=== PATIENT | male | born 1970 | race Caucasian/White ===

== ENCOUNTER 2022-09-13 15:40 | Inpatient (IN) | payer OTHER, SELFPAY ==
--- NOTE | ~2022-09-13 | CT_ITS ---
EXAMINATION: CT ABDOMEN AND PELVIS WITHOUT CONTRAST CLINICAL INFORMATION: Abdominal pain and leukocytosis COMPARISON: None available. TECHNIQUE: Multidetector volumetric imaging was performed from the superior aspect of the liver through the pubic symphysis. Sagittal and coronal reformatted images were obtained on the technologist's workstation. This CT examination was performed using dose optimization techniques as appropriate, variously including the following: *Automated exposure control *Adjustment of mA and/or kV according to patient size (this includes techniques or standardized protocols for targeted exams where dose is matched to indication/reason for exam; i.e. extremities or head) *Use of iterative reconstruction technique DLP: 540 mGy-cm FINDINGS: LUNG BASES: The visualized lung bases are unremarkable. LIVER, GALLBLADDER, AND BILIARY TREE: The liver is normal in size, shape, and attenuation. No focal hepatic lesion or biliary ductal dilatation is present. The gallbladder is unremarkable with no evidence of radiopaque gallstones, gallbladder wall thickening, or obvious pericholecystic inflammatory changes. PANCREAS: Unremarkable. SPLEEN: Small calcification in the spleen. ADRENAL GLANDS: Unremarkable. KIDNEYS AND URETERS: The kidneys are normal in size, shape, and attenuation. No hydronephrosis, hydroureter, or calculi seen. 4 cm cyst in the lower pole of the left kidney. No imaging follow-up recommended. No perinephric stranding. BLADDER: Unremarkable. GASTROINTESTINAL TRACT: There is diverticulosis of the colon. There is focal wall thickening of the proximal sigmoid colon and stranding of the surrounding fat suggestive of diverticulitis. There is ill-defined increased soft tissue seen lateral to the sigmoid colon questionable for developing abscess. This measures 2 x 3.5 cm in transverse and AP dimension and 3 cm in longitudinal dimension. No evidence of obstruction or perforation. The small and large bowel are otherwise unremarkable. The appendix is unremarkable. ABDOMINAL WALL: No significant hernia is appreciated. LYMPH NODES: No enlarged lymph nodes. Small retroperitoneal lymph nodes. VASCULAR: Unremarkable. PELVIC VISCERA: Unremarkable. OSSEOUS STRUCTURES: Degenerative changes of the spine. CT/CT abdomen pelvis wo IV con IMPRESSION: Sigmoid diverticulitis. Question small developing abscess lateral to the sigmoid colon. Fleischner guidelines were followed.
[2022-09-13 17:18] VITALS: BP 159/91; PULSE 84; RESP 16; TEMP 37; O2SAT 98; BMI 27.4
[2022-09-13 17:38] LABS: MANUAL DIFF FLAG NO
[2022-09-13 17:39] LABS: Basophils Absolute Auto 0.1 X10*3/uL (0.0-0.2); Basophils Percent Auto 0.8 % (0-2); Eosinophils Absolute Auto 0.3 X10*3/uL (0.0-0.4); Hematocrit 47.6 % (42.0-52.0); Hemoglobin 15.5 g/dl (14.0-18.0); Imm Gran Abs Auto 0.11 X10*3/uL (0.00-0.03); Imm Gran Pct Auto 0.8 % (0.0-0.4); Lymphocytes Absolute Auto 2.2 X10*3/uL (1.2-4.9); Lymphocytes Percent Auto 15.2 % (20-40); Mean Corpuscular HGB Conc 32.6 g/dl (31.0-36.0); Mean Corpuscular Hemoglobin 28.8 pg (27.0-33.0); Mean Corpuscular Volume 88.3 fL (80.0-98.0); Mean Platelet Volume 9.9 fL (9.4-12.4); Monocytes Absolute Auto 1.3 X10*3/uL (0.1-1.2); Neutrophils Absolute Auto 10.5 x10*3/uL (2.0-8.3); Neutrophils Percent Auto 72.2 % (45-73); Platelet Count 441 X10*3/uL (160-400); Red Blood Count 5.39 X10*6/uL (4.60-5.80); Red Cell Distribution Width 14.2 % (11.0-16.0); White Blood Count 14.5 X10*3/uL (4.8-10.8)
[2022-09-13 17:59] LABS: Alanine Aminotransferase 14 U/L (0-40); Albumin Level 4.1 g/dL (3.5-5.0); Alkaline Phosphatase 73 U/L (39-117); Anion Gap 12 (12-20); Aspartate Amino Transferase 15 U/L (5-37); Bilirubin Total 0.6 mg/dL (0.0-1.0); Blood Urea Nitrogen 16 mg/dL (9-16); Calcium 9.2 mg/dL (8.4-10.2); Carbon Dioxide 30 mmol/L (22-29); Chloride 103 mmol/L (96-108); Creatinine Clr Calc Pharmacy 97.1; Estimated Glomerular Filt Rate > 60; Glucose Random 94 mg/dL (60-115); Lipase 10 U/L (8-78); Potassium 3.9 mmol/L (3.3-5.1); Sodium 141 mmol/L (135-145); Total Protein 7.1 g/dL (6.5-8.0)
--- NOTE | 2022-09-13 21:29 | ED_ITS ---
HPI - Abdominal Pain General Chief Complaint: Abdominal Pain Stated Complaint: abd pain Time Seen by Provider: 09/13/22 21:19 Source: patient Mode of arrival: ambulatory Limitations: no limitations History of Present Illness HPI narrative: 51-year-old male complain of lower pain mostly suprapubic area for the past 6 days. Pain is confined to the suprapubic area with no radiation described as severe 10/10, patient lives with chronic constipation had a normal movement after taking laxative 2 days ago with no relief of his pain, patient is passing gas, declined any intra-abdominal abdominal surgery in the past. No clear aggravating factors or relieving factors, no nausea, no vomiting, no diarrhea, no fever, no chills, no dysuria, no frequency urination, no blood in the urine. Related Data Allergies Allergy/AdvReac Type Severity Reaction Status Date / Time No Known Allergies Allergy Verified 09/13/22 17:25 Review of Systems Review of Systems All other systems are reviewed and are negative Constitutional: Reports as per HPI and Reports no additional constitutional complaints Eyes: Reports as per HPI and Reports no additional eye complaints Reports system reviewed and no additional complaints, except as documented Cardiovascular: Reports as per HPI and Reports no additional cardiovascular complaints Respiratory: Reports as per HPI and Reports no additional respiratory complaints Gastrointestinal: Reports as per HPI and Reports no additional gastrointestinal complaints Genitourinary: Reports no additional female genitourinary complaints Musculoskeletal: Reports no additional musculoskeletal complaints Skin/Breast: Reports system reviewed and no additional complaints, except as docu Psychiatric: Reports no additional psychiatric complaints Endocrine: Reports no additional endocrine complaints Hematologic/Lymphatic: Reports no additional hematologic/lymphatic complaints Allergic/Immunologic: Reports no additional allergic/immunologic complaints Reports system reviewed and no additional complaints, except as documented and Reports Abnormal speech present [facility] Social History Social History Advance Directives: No Advance Directives Information Provided: Yes Physical Exam ED Vital Signs: Vital Signs - 24 hr 09/13/22 17:18 09/13/22 22:00 Temperature 98.6 F 97.6 F Pulse Rate 84 78 Respiratory Rate 16 16 Blood Pressure 159/91 H 135/89 Pulse Oximetry 98 95 Oxygen Delivery Method Room Air Room Air BMI result Body Mass Index 27.4 Vital signs have been reviewed as appeared to be correct. Blood pressure normal. Heart rate normal. Respiration rate normal. Temperature normal. Oxygen saturation normal. Appearance: Alert. Oriented X3. No acute distress. Head: Normal external exam. Normocephalic. Atraumatic. No Mcneil signs noted. No raccoon eyes noted Eyes: PERRLA. EOMI. Conjunctiva and sclera normal. Eyelids normal. ENT: TM's Normal. Pharynx normal. Uvula midline. Moist mucous membranes. No trismus noted. No drooling noted. No muffled voice noted. Neck: Normal inspection. Neck supple. FROM. No adenopathy. Thyroid Normal. No meningeal signs. No neck mass noted. CVS: Normal heart rate and rhythm. Heart sound normal. No murmurs noted. Pulses normal throughout. Respiratory: No respiratory distress. Painless inspiration. Breath sounds normal. No wheezes/rales/rhonchi noted. Chest nontender. No accessory muscle usage noted or decreased air movement noted. Abdomen: Soft, mild suprapubic abdominal tenderness, no rebound tenderness, no guarding.. Bowel sounds normal in all 4 quadrants. No distention noted. No organomegaly noted. No visible injury noted. Back: No CVA tenderness. Full range of motion noted. Skin: Skin warm and dry. Normal skin color. Normal skin turgor. No rashes/lesions/lacerations noted. Extremities: No lower extremity edema. Extremities exhibit normal range of motion. Extremities nontender. Neuro: Oriented X 3. Cranial nerve exam: II-XII are grossly intact No motor deficit. No sensory deficit. Reflexes normal. Course Course Course Narrative: 51-year-old male came in with abdominal pain, leukocytosis, CT showing diverticulitis with small abscess, not meeting criteria for SIRS, received Zosyn in the emergency department the case discussed with Dr. Weaver who advised for a medical admission IV antibiotic and inpatient surgical consultation. Case discussed with Dr. Hernandez who accepted the patient to the hospitalist service. Medical Decision Making Differential Diagnosis Differential Diagnoses: The differential diagnosis associated with the presentation includes (Diverticulitis, perforated viscus, abscess, colitis, appendicitis, kidney stone electrolyte abnormalities, severe anemia, UTI.) Admission/Observation Consideration of admission/observation: Escalation of care including admission/observation considered Consult Healthcare Provider Management of the patient was discussed with: Hospitalist (Dr. Hernandez) and Marketing Analyst (Dr. Weaver) Lab Data MDM Lab Attestation statement: I reviewed the patient's lab results. 09/13/22 17:32 09/13/22 17:32 Labs: Lab Results 09/13/22 09/13/22 Range/Units 17:32 17:32 WBC 14.5 H (4.8-10.8) X10*3/uL RBC 5.39 (4.60-5.80) X10*6/uL Hgb 15.5 (14.0-18.0) g/dl Hct 47.6 (42.0-52.0) % MCV 88.3 (80.0-98.0) fL MCH 28.8 (27.0-33.0) pg MCHC 32.6 (31.0-36.0) g/dl RDW 14.2 (11.0-16.0) % Plt Count 441 H (160-400) X10*3/uL MPV 9.9 (9.4-12.4) fL Immature Gran % (Auto) 0.8 H (0.0-0.4) % Neut % (Auto) 72.2 (45-73) % Lymph % (Auto) 15.2 L (20-40) % [place] % (Auto) 9.0 (2-11) % Eos % (Auto) 2.0 (0-4) % Baso % (Auto) 0.8 (0-2) % Lymph # (Auto) 2.2 (1.2-4.9) X10*3/uL [place] # (Auto) 1.3 H (0.1-1.2) X10*3/uL Eos # (Auto) 0.3 (0.0-0.4) X10*3/uL Baso # (Auto) 0.1 (0.0-0.2) X10*3/uL Abs Immat Gran (auto) 0.11 H (0.00-0.03) X10*3/uL Absolute Neuts (auto) 10.5 H (2.0-8.3) x10*3/uL Absolute Nucleated RBC 0.000 (0.0-0.012) X10*3/uL Nucleated RBC % (auto) 0.0 (0.0-0.2) /100WBC Sodium 141 (135-145) mmol/L Potassium 3.9 (3.3-5.1) mmol/L Chloride 103 (96-108) mmol/L Carbon Dioxide 30 H (22-29) mmol/L Anion Gap 12 (12-20) BUN 16 (9-16) mg/dL Creatinine 0.88 (0.5-1.4) mg/dL Estim Creat Clear Calc 97.1 Estimated GFR > 60 Random Glucose 94 (60-115) mg/dL Calcium 9.2 (8.4-10.2) mg/dL Total Bilirubin 0.6 (0.0-1.0) mg/dL AST 15 (5-37) U/L ALT 14 (0-40) U/L Alkaline Phosphatase 73 (39-117) U/L Total Protein 7.1 (6.5-8.0) g/dL Albumin 4.1 (3.5-5.0) g/dL Lipase 10 (8-78) U/L Independent Interpretation I performed an independent interpretation of an: CT Scan (Sigmoid diverticulitis. Question small developing abscess lateral to the sigmoid colon. ) Radiology Impression Discussion of test interpretation with radiology: I have reviewed the radiologist's reading. Discharge Plan Discharge Clinical Impression: Diverticulitis Patient Disposition: Admitted As Inpatient
--- NOTE | 2022-09-13 21:38 | PC.NURSE ---
Pt ca&ox3. Pt denies chest pain and sob. No signs of distress. Pt reports bowel movement this am. Pt taken to CT scan. Will continue to monitor.
[2022-09-13 22:00] VITALS: BP 135/89; PULSE 78; RESP 16; TEMP 36.4; O2SAT 95
--- OUTSIDE RECORDS SUMMARY | 2022-09-13 22:01 | XMS_ITS | Continuity of Care Document ---
Author Name Unknown Organization [facility] ter Address [address] [place] [id number] Care Team Providers Care Twist Tester Name Role Phone Chidi HICKMAN MD, Jose Bailey Primary Care Physician [phone] [place]counter [facility] [place] Date(s): 05/07/19 - 05/07/[address] [address]- [facility] Attending Physician: Ian Macias MD Allergies, Adverse Reactions, Alerts Substance Reaction Severity Status NKA Active Medications acetaminophen-hydrocodone 500 mg-5 mg oral capsule See Instructions, PRN for pain, 1 TO 2 capsule By Mouth NEEDED AT BEDTIME, # 60 capsule, 0 Refills, Maintenance, Capsule Start Date: 03/21/13 Status: Ordered CellCept 500 mg oral tablet 2 tablet, By Mouth, 2 times a day, # 360 tablet, 5 Refills, Maintenance, 01/13/14 9:00:42, Tablet, 2 tablet By Mouth 2 times a day,x90 days Start Date: 01/13/14 Stop Date: 07/07/15 Status: Ordered omeprazole 40 mg oral enteric coated capsule 1 capsule = 40 mg, By Mouth, Daily, # 30 capsule, 0 Refills, Maintenance, EC Capsule Start Date: 02/15/13 Status: Ordered prednisone 5 mg oral tablet 1 tablet = 5 mg, By Mouth, Daily, # 30 tablet, 10 Refills, Maintenance, 04/01/14 15:56:35, 1 tabletBy Mouth Daily Start Date: 04/01/14 Status: Ordered Problem List Condition Effective Dates Status Health Status Inform ant Chronic disease(Confirmed) Active
--- NOTE | 2022-09-13 23:08 | P.HPHOSP_ITS ---
History of Present Illness Date of Service: 09/13/22 Chief Complaint: Abdominal Pain This is a 51-year-old male with pertinent history of knee osteoarthritis on NSAIDs who presents to the emergency department for evaluation of abdominal discomfort. Patient states he has been having abdominal pain in the epigastric region that started 4-5 days prior to presentation. Patient initially had constipation but was able to pass stools after he took [id number] stool softeners. Patient states the abdominal discomfort is relieved when he passes stools. No similar complaints in the past. The abdominal pain is nonradiating, intermittent and without any relieving factors. No relation of the pain to p.o. intake. Patient denies nausea and vomiting. Did have episodes of chills. No fever. Patient denies chest discomfort, palpitations, shortness of breath, changes in urinary habits. Patient has never had a screening colonoscopy or intra-abdominal surgery in the past. In the emergency department, imaging with acute diverticulitis with questionable small developing abscess. General surgery was consulted who recommended admission to Medicine Review of Systems Constitutional: Constitutional: Reports chills Cardiovascular: Cardiovascular: Reports no additional cardiovascular complaints Respiratory: Respiratory: Reports no additional respiratory complaints Gastrointestinal: Gastrointestinal: Reports abdominal pain Genitourinary: Genitourinary: Reports no additional male genitourinary complaints [facility] Medical History Knee osteoarthritis Functional capacity: independent ambulation Pertinent family history: no family history of early CAD Social History Smoked in Last 30 Days: Yes Advance Directives: No Advance Directives Information Provided: Yes Meds Allergies Allergy/AdvReac Type Severity Reaction Status Date / Time No Known Allergies Allergy Verified 09/13/22 17:25 Physical Exam Vital Signs and Narrative: Vital Signs: Last Vital Signs Temp 97.6 F 09/13/22 22:00 Pulse 78 09/13/22 22:00 Resp 16 09/13/22 22:00 BP 135/89 09/13/22 22:00 Pulse Ox 95 09/13/22 22:00 O2 Del Method Room Air 09/13/22 22:00 BMI result Body Mass Index 27.4 Middle-aged male lying in bed in no distress Neck supple, no JVD Regular rate and rhythm, S1-S2 heard Regular breath sounds bilaterally, no wheezing or crackles appreciated Abdomen with left lower quadrant tenderness, no guarding, no rigidity, no rebound tenderness Patient is awake, alert and oriented to self, place, time and person ; no focal motor deficit Psych: Normal mood No pedal edema Results Labs 09/13/22 17:32 09/13/22 17:32 Labs: Laboratory Results - last 24 hr 09/13/22 09/13/22 17:32 17:32 MCV 88.3 MCH 28.8 MCHC 32.6 RDW 14.2 Plt Count 441 H MPV 9.9 Immature Gran % (Auto) 0.8 H Neut % (Auto) 72.2 Lymph % (Auto) 15.2 L [place] % (Auto) 9.0 Eos % (Auto) 2.0 Baso % (Auto) 0.8 Lymph # (Auto) 2.2 [place] # (Auto) 1.3 H Eos # (Auto) 0.3 Baso # (Auto) 0.1 Abs Immat Gran (auto) 0.11 H Absolute Neuts (auto) 10.5 H Absolute Nucleated RBC 0.000 Nucleated RBC % (auto) 0.0 Anion Gap 12 Estim Creat Clear Calc 97.1 Estimated GFR > 60 Random Glucose 94 Calcium 9.2 Total Bilirubin 0.6 AST 15 ALT 14 Alkaline Phosphatase 73 Total Protein 7.1 Albumin 4.1 Lipase 10 Imaging Radiologist's Impressions: Impressions Abdomen/Pelvis CT 09/13/22 21:45 IMPRESSION: Sigmoid diverticulitis. Question small developing abscess lateral to the sigmoid colon. Fleischner guidelines were followed. Assessment and Plan (1) Diverticulitis: Status: Acute Plan This is a 51-year-old male with pertinent history of knee osteoarthritis on NSAIDs who presents to the emergency department for evaluation of abdominal discomfort. #. acute sigmoid diverticulitis with questionable small developing abscess: Will admit patient and initiate empiric IV antibiotics. Analgesics p.r.n.. Resuscitating with IV crystalloids. General surgery consulted from the ER, appreciate assistance. Full liquid diet and advance as tolerated. Will need colonoscopy after complete resolution of symptoms in 6-8 weeks. DVT prophylaxis: Lovenox Full liquid diet Full code Admit as inpatient and will require two night minimum hospital stay for IV antibiotics Time Spent With Patient Time: Total time managing care of this patient today ____ minutes. Quality Stroke Does the patient have a stroke diagnosis?: No VTE Prior VTE?: No VTE Risk Level:: Medical - moderate - high VTE Device Contraindication: Treatment Not Indicated VTE Drug Contraindication: N/A - Med Ordered
--- NOTE | 2022-09-13 23:10 | MHC.EDTECH ---
pt been walking to and from the restroom
[2022-09-13 23:12] LABS: Lactic Acid 0.6 mmol/L (0.5-2.0)
[2022-09-13] MEDS: Piperacillin Sodium/Tazobactam 3.375 GM in 0.9 % Sodium Chloride 50 ML IV (23:14)
[2022-09-13] MEDS: 0.9 % Sodium Chloride 1,000 ML 999 ML IV (23:39)
--- NOTE | 2022-09-13 23:42 | PC.NURSE ---
Pt ca&ox3. No signs of distress. Pt denies chest pain and sob. Pt given meds per mar. Hob of lowered per pt req. Will continue to monitor.
--- NOTE | 2022-09-13 23:47 | PC.NURSE ---
Iv placed, medicated per mar, no sign of distress, Will continue to monitor.
[2022-09-14 00:10] VITALS: RESP 16
[2022-09-14] MEDS: Morphine Sulfate 4 MG/ML CARTRIDGE IVPUSH ×3 (00:10→14:04)
[2022-09-14] MEDS: ondansetron HCL 4 MG/2 ML VIAL IVPUSH (00:11)
--- NOTE | 2022-09-14 00:17 | PC.NURSE ---
Pt ca&ox3. Pt reports 10/15 abdm pain. Pt medicated per jul. Pt denies chest pain and sob. No signs of distress. Will continue to monitor.
--- NOTE | 2022-09-14 01:14 | PC.NURSE ---
Report given to receiving unit, pt transport to by PCT to unit. pt was a&o, no sob or chest pain, no sign of distress.
[2022-09-14 01:22] VITALS: BP 154/89; PULSE 81; RESP 19; TEMP 36.1; O2SAT 95
[2022-09-14 01:55] VITALS: BMI 27.4
--- NOTE | 2022-09-14 02:21 | PC.NURSE ---
Assumed care of pt at 0100. Pt A&Ox4, no c/o pain, sob, or nausea. Admission and med rec complete. Given jello and moustapha mamie per pt request, tolerated well. VSS, pt resting comfortably in bed. Will continue with plan of care.
[2022-09-14] MEDS: Piperacillin Sodium/Tazobactam 4.5 GM in 0.9 % Sodium Chloride 100 ML IV ×4 (06:36→23:34)
[2022-09-14 07:01] LABS: MANUAL DIFF FLAG NO
[2022-09-14 07:08] LABS: Basophils Absolute Auto 0.1 X10*3/uL (0.0-0.2); Basophils Percent Auto 0.6 % (0-2); Eosinophils Absolute Auto 0.4 X10*3/uL (0.0-0.4); Eosinophils Percent Auto 2.9 % (0-4); Hematocrit 45.9 % (42.0-52.0); Imm Gran Pct Auto 0.8 % (0.0-0.4); Lymphocytes Absolute Auto 2.4 X10*3/uL (1.2-4.9); Lymphocytes Percent Auto 18.1 % (20-40); Mean Corpuscular HGB Conc 32.7 g/dl (31.0-36.0); Mean Corpuscular Hemoglobin 28.7 pg (27.0-33.0); Mean Corpuscular Volume 87.8 fL (80.0-98.0); Mean Platelet Volume 10.2 fL (9.4-12.4); Monocytes Absolute Auto 1.2 X10*3/uL (0.1-1.2); Monocytes Percent Auto 9.3 % (2-11); Neutrophils Absolute Auto 9.1 x10*3/uL (2.0-8.3); Neutrophils Percent Auto 68.3 % (45-73); Platelet Count 415 X10*3/uL (160-400); Red Blood Count 5.23 X10*6/uL (4.60-5.80); Red Cell Distribution Width 14.2 % (11.0-16.0); White Blood Count 13.3 X10*3/uL (4.8-10.8)
[2022-09-14 07:10] VITALS: BP 129/75; PULSE 88; RESP 18; TEMP 37.2; O2SAT 95
--- NOTE | 2022-09-14 07:12 | PHA.MEDREC ---
Pharmacy Consult ? Medication Reconciliation Pharmacy has completed the medication reconciliation. Reviewed med rec done by nursing
--- NOTE | 2022-09-14 07:19 | P.PNIM_ITS ---
Subjective Subjective Date of Service: 09/14/22 Interval History: Phone acute diverticulitis Interval history: 08/15 abdominal pain Physical Exam Vital Signs: Vital Signs: Last Vital Signs Temp 99.0 F 09/14/22 07:10 Pulse 88 09/14/22 07:10 Resp 18 09/14/22 07:10 BP 129/75 09/14/22 07:10 Pulse Ox 95 09/14/22 07:10 O2 Del Method Room Air 09/14/22 07:10 BMI result Body Mass Index 27.4 Const: Other: General: AO X 3, no acute distress Resp: CTA bilateral CVS: S1,S2,RRR GI: +BS, mild mid abd tenderness, no distention Skin: No rash Neuro: motor grossly intact Psych: appropriate affect Objective Data Active Medications Acetaminophen (Acetaminophen 325 Mg Tablet) 650 mg PO Q6H PRN PRN Reason: Pain, Mild (Pain Scale 1-3) Enoxaparin Sodium (Enoxaparin Sodium 40 Mg/0.4 Ml Syringe) 40 mg SUBCUT Q24H [facility] Piperacillin Sod/Tazobactam (Sod 4.5 gm/ Sodium Chloride) 100 mls @ 200 mls/hr IV Q6H [facility] Last Admin: 09/14/22 06:36 Dose: 200 mls/hr Documented By: GILBERTO Melatonin (Melatonin 3 Mg Tablet) 6 mg PO BEDTIME PRN PRN Reason: Insomnia Morphine Sulfate (Morphine Sulfate 4 Mg/Ml Cartridge) 4 mg IVPUSH Q4H PRN; Protocol PRN Reason: Pain, Severe (Pain Scale 7-10) Last Admin: 09/14/22 00:10 Dose: 4 mg Documented By: CHIVO Ondansetron HCl (Ondansetron Hcl 4 Mg/2 Ml Vial) 4 mg IVPUSH Q8H PRN PRN Reason: Nausea and Vomiting Last Admin: 09/14/22 00:11 Dose: 4 mg Documented By: CHIVO Sodium Chloride (0.9 % Sodium Chloride Flush 3 Ml Syringe) 3 ml IVFLUSH QSHIFT [facility] Last Admin: 09/14/22 00:21 Dose: Not Given Documented By: CHIVO Non-Admin Reason: IV Running Labs 09/14/22 06:19 09/13/22 17:32 Labs: Laboratory Results - last 24 hr 09/13/22 09/13/22 09/13/22 17:32 17:32 22:49 MCV 88.3 MCH 28.8 MCHC 32.6 RDW 14.2 Plt Count 441 H MPV 9.9 Immature Gran % (Auto) 0.8 H Neut % (Auto) 72.2 Lymph % (Auto) 15.2 L [place] % (Auto) 9.0 Eos % (Auto) 2.0 Baso % (Auto) 0.8 Lymph # (Auto) 2.2 [place] # (Auto) 1.3 H Eos # (Auto) 0.3 Baso # (Auto) 0.1 Abs Immat Gran (auto) 0.11 H Absolute Neuts (auto) 10.5 H Absolute Nucleated RBC 0.000 Nucleated RBC % (auto) 0.0 Anion Gap 12 Estim Creat Clear Calc 97.1 Estimated GFR > 60 Random Glucose 94 Lactic Acid 0.6 Calcium 9.2 Total Bilirubin 0.6 AST 15 ALT 14 Alkaline Phosphatase 73 Total Protein 7.1 Albumin 4.1 Lipase 10 09/14/22 06:19 MCV 87.8 MCH 28.7 MCHC 32.7 RDW 14.2 Plt Count 415 H MPV 10.2 Immature Gran % (Auto) 0.8 H Neut % (Auto) 68.3 Lymph % (Auto) 18.1 L [place] % (Auto) 9.3 Eos % (Auto) 2.9 Baso % (Auto) 0.6 Lymph # (Auto) 2.4 [place] # (Auto) 1.2 Eos # (Auto) 0.4 Baso # (Auto) 0.1 Abs Immat Gran (auto) 0.10 H Absolute Neuts (auto) 9.1 H Absolute Nucleated RBC 0.000 Nucleated RBC % (auto) 0.0 Anion Gap Estim Creat Clear Calc Estimated GFR Random Glucose Lactic Acid Calcium Total Bilirubin AST ALT Alkaline Phosphatase Total Protein Albumin Lipase Assessment and Plan (1) Diverticulitis: Status: Acute Plan 51-year-old male with pertinent history of knee osteoarthritis on NSAIDs who presents to the emergency department for evaluation of abdominal discomfort. ?#. acute sigmoid diverticulitis with questionable small developing abscess -Surgery consult -Zosyn started 09/13 -advamce diet as tolerated -morphine for pain Full liquid diet Full code Need for inpatient acute diverticulitis with abscess hand risk for perforation and therefore need aggressive and need IV antibiotic therapy and possible surgical intervention. Time Spent With Patient Time: Total time managing care of this patient today ____ minutes. Quality Stroke Does the patient have a stroke diagnosis?: No VTE Prior VTE?: No VTE Risk Level:: Medical - moderate - high VTE Device Contraindication: Treatment Not Indicated VTE Drug Contraindication: N/A - Med Ordered
[2022-09-14 07:41] LABS: Anion Gap 11 (12-20); Blood Urea Nitrogen 12 mg/dL (9-16); Calcium 8.4 mg/dL (8.4-10.2); Carbon Dioxide 27 mmol/L (22-29); Chloride 107 mmol/L (96-108); Creatinine Clr Calc Pharmacy 108.2; Estimated Glomerular Filt Rate > 60; Glucose Random 91 mg/dL (60-115); Potassium 4.1 mmol/L (3.3-5.1); Sodium 141 mmol/L (135-145)
[2022-09-14] MEDS: 0.9 % Sodium Chloride Flush 3 ML SYRINGE IVFLUSH ×3 (08:30→23:34)
[2022-09-14] MEDS: Enoxaparin Sodium 40 MG/0.4 ML SYRINGE SUBCUT (08:31)
--- NOTE | 2022-09-14 09:10 | MHC.CM.PN ---
EMR REVIEWED, PT ADMITTED W/ABD PAIN, CM MET W/PT WHO REPORTS HE LIVES W/A ROOMATE, IS INDEP W/ALL CARE, DENIES USE OF DME AND HOME SERIVES. PT MAY NEED RETURN TO WORK LETTER. PT VERIFIES PCP IS URSULA PAGE AT [facility], [facility] AND HAS BEEN EDUCATED ON AND DECLINES TO COMPLETE A HCP AT THIS TIME, PT AWARE IF HE CHANGES HIS MIND HE CAN ASK FOR CM. D/C PLAN: HOME NO SERVICES, PT WILL ARRANGE TRANSPORT
--- NOTE | 2022-09-14 11:00 | PM.CNGS ---
History of Present Illness Consult details Consult date: 09/14/22 Reason for consult: abdominal pain Narrative: The patient is a 51-year-old gentleman who is seen at the request of the ER and hospitalist service because of his 1st episode of sigmoid diverticulitis. Patient reports a history of obstipation and lower abdominal pain that started last week. While it waxed and waned, there were some worsening which was more severe than his usual constipation. He tried self medicating with laxatives with some relief but came to the hospital review was noted to have a possible sigmoid abscess measuring 2.0 x 3.5 x 3 cm, please see radiologist's report. I was asked to help with his management. Patient denies any prior hospitalizations for diverticulitis in the past. Review of Systems Review of Systems: Yes all other systems are reviewed and are negative Constitutional: Constitutional: Reports as per [facility] Past Medical History Medical History Knee osteoarthritis Functional capacity: independent ambulation Social History Social History Household Members: Friend(s) Housing: Apartment Do you presently have visiting nurse or other home services: No Patient Tobacco Use Status: Current everyday Tobacco user Tobacco use type: Cigarette Cigarette Packs Per Day: 0.5 Cigarettes Per Day: 10.0 Substance Use Type: Marijuana service: No Meds Allergies Allergy/AdvReac Type Severity Reaction Status Date / Time No Known Allergies Allergy Verified 09/13/22 17:25 Active Medications: Current Medications Acetaminophen (Acetaminophen 325 Mg Tablet) 650 mg PO Q6H PRN PRN Reason: Pain, Mild (Pain Scale 1-3) Enoxaparin Sodium (Enoxaparin Sodium 40 Mg/0.4 Ml Syringe) 40 mg SUBCUT Q24H [facility] Last Admin: 09/14/22 08:31 Dose: 40 mg Piperacillin Sod/Tazobactam (Sod 4.5 gm/ Sodium Chloride) 100 mls @ 200 mls/hr IV Q6H [facility] Last Infusion: 09/14/22 07:35 Dose: Infused Melatonin (Melatonin 3 Mg Tablet) 6 mg PO BEDTIME PRN PRN Reason: Insomnia Morphine Sulfate (Morphine Sulfate 4 Mg/Ml Cartridge) 4 mg IVPUSH Q4H PRN; Protocol PRN Reason: Pain, Severe (Pain Scale 7-10) Last Admin: 09/14/22 08:30 Dose: 4 mg Ondansetron HCl (Ondansetron Hcl 4 Mg/2 Ml Vial) 4 mg IVPUSH Q8H PRN PRN Reason: Nausea and Vomiting Last Admin: 09/14/22 00:11 Dose: 4 mg Sodium Chloride (0.9 % Sodium Chloride Flush 3 Ml Syringe) 3 ml IVFLUSH QSHIFT [facility] Last Admin: 09/14/22 08:30 Dose: 3 ml Home Medications Medication Instructions Recorded Confirmed Last Taken Type naproxen 500 mg tablet 500 mg PO BID 09/14/22 09/14/22 Unknown History Physical Exam Vital Signs: Vital Signs: Last Vital Signs Temp 99.0 F 09/14/22 07:10 Pulse 88 09/14/22 07:10 Resp 18 09/14/22 07:10 BP 129/75 09/14/22 07:10 Pulse Ox 95 09/14/22 07:10 O2 Del Method Room Air 09/14/22 07:10 BMI result Body Mass Index 27.4 The patient is non-toxic & in good spirits NC/AT, PERRLA, EOMI Mood, affect & judgment all appear appropriate Sclera anicteric conjunctiva pink and moist Oropharynx is clear with no aphthous ulcers, Mallampati class 3, mucous membranes moist Neck is supple with no masses, adenopathy or bruits Heart is regular, normal S1-S2 no rubs or murmurs Lungs are clear and equal anteriorly with no audible wheezing, rubs or dullness to percussion Abdomen is overweight soft with suprapubic & LLQ tenderbess and no demonstrable hernias. No diffuse peritoneal sign is noted. No HSM, rebound, rigidity, guarding, masses or bruits are present. Rectal exam is deferred Skin has good turgor and is free of rashes Extremities free of cyanosis clubbing edema Results Labs 09/14/22 06:19 09/14/22 06:19 Labs: Abnormal lab results 09/13/22 09/13/22 09/14/22 Range/Units 17:32 17:32 06:19 WBC 14.5 H 13.3 H (4.8-10.8) X10*3/uL Plt Count 441 H 415 H (160-400) X10*3/uL Immature Gran % (Auto) 0.8 H 0.8 H (0.0-0.4) % Lymph % (Auto) 15.2 L 18.1 L (20-40) % Garden # (Auto) 1.3 H (0.1-1.2) X10*3/uL Abs Immat Gran (auto) 0.11 H 0.10 H (0.00-0.03) X10*3/uL Absolute Neuts (auto) 10.5 H 9.1 H (2.0-8.3) x10*3/uL Carbon Dioxide 30 H (22-29) mmol/L Anion Gap (12-20) 09/14/22 Range/Units 06:19 WBC (4.8-10.8) X10*3/uL Plt Count (160-400) X10*3/uL Immature Gran % (Auto) (0.0-0.4) % Lymph % (Auto) (20-40) % Garden # (Auto) (0.1-1.2) X10*3/uL Abs Immat Gran (auto) (0.00-0.03) X10*3/uL Absolute Neuts (auto) (2.0-8.3) x10*3/uL Carbon Dioxide (22-29) mmol/L Anion Gap 11 L (12-20) Short CBC 09/13/22 09/14/22 Range/Units 17:32 06:19 WBC 14.5 H 13.3 H (4.8-10.8) X10*3/uL Hgb 15.5 15.0 (14.0-18.0) g/dl Hct 47.6 45.9 (42.0-52.0) % Plt Count 441 H 415 H (160-400) X10*3/uL BMP 09/13/22 09/14/22 17:32 06:19 Sodium 141 141 Potassium 3.9 4.1 Chloride 103 107 Carbon Dioxide 30 H 27 BUN 16 12 Creatinine 0.88 0.79 Calcium 9.2 8.4 D Liver Function 09/13/22 Range/Units 17:32 Total Bilirubin 0.6 (0.0-1.0) mg/dL AST 15 (5-37) U/L ALT 14 (0-40) U/L Alkaline Phosphatase 73 (39-117) U/L Albumin 4.1 (3.5-5.0) g/dL All other labs normal. Imaging Abdomen CT scan report/results: report reviewed and image reviewed CT scan - pelvis: report reviewed and image reviewed Assessment and Plan (1) Diverticulitis: Status: Acute Plan Would recommend bowel rest and IV antibiotics until the patient is pain-free. I suspect the abscess is too small to require percutaneous drainage but discussion with Interventional Radiology would best answer this concern. Patient's abdominal complaints are focal and he does not have diffuse peritonitis to mandate exploration. We had a discussion regarding the importance of excluding a malignancy in the need for a colonoscopy down the road on an outpatient basis. The possibility of operative intervention being required was also discussed and his questions answered. Will follow. Time Spent With Patient Time: Total time managing care of this patient today ____ minutes. Procedures Date of Service Date of Service: 09/14/22
[2022-09-14 11:27] VITALS: BP 143/84; PULSE 70; RESP 20; TEMP 36.6; O2SAT 94
[2022-09-14 15:42] VITALS: BP 142/77; PULSE 74; RESP 14; TEMP 36.2; O2SAT 97
[2022-09-14 19:33] VITALS: BP 134/79; PULSE 76; RESP 14; TEMP 36.2; O2SAT 97
[2022-09-15] VITALS: BP 142/75; PULSE 81; RESP 19; TEMP 36.7; O2SAT 94
[2022-09-15 04:00] VITALS: RESP 19
[2022-09-15] MEDS: Piperacillin Sodium/Tazobactam 4.5 GM in 0.9 % Sodium Chloride 100 ML IV ×2 (06:20→12:56)
[2022-09-15 07:17] VITALS: BP 139/78; PULSE 67; RESP 20; TEMP 37.7; O2SAT 96
[2022-09-15] MEDS: Morphine Sulfate 4 MG/ML CARTRIDGE IVPUSH (08:33)
--- NOTE | 2022-09-15 08:34 | PM.PNGS ---
Subjective Subjective Date of Service: 09/15/22 Patient reports: no new complaints, feels better, tolerating liquids well, flatus and bowel movement Interval history: Patient reports that he has absolutely no abdominal pain. He is questioning whether not he is a candidate for outpatient treatment noting that he is tolerating his diet, having no pain. We discussed the need to recheck his CBC since his white count was elevated. If his white count were to be higher, repeat CT may be required, however if his white count is normalized, he certainly is a candidate for outpatient treatment. He otherwise denies any new complaints such as chest pain, difficulty breathing or shortness of breath. Physical Exam Vital Signs: Vital Signs: Last Vital Signs Temp 99.9 F 09/15/22 07:17 Pulse 67 09/15/22 07:17 Resp 20 09/15/22 07:17 BP 139/78 09/15/22 07:17 Pulse Ox 96 09/15/22 07:17 O2 Del Method Room Air 09/15/22 07:17 BMI result Body Mass Index 27.4 On exam he is nontoxic He is anicteric He is in no acute respiratory distress He is no focal neurologic deficits His abdomen is soft with no rebound, rigidity, guarding or tenderness. No peritoneal sign is elicited Objective Data Active Medications Acetaminophen (Acetaminophen 325 Mg Tablet) 650 mg PO Q6H PRN PRN Reason: Pain, Mild (Pain Scale 1-3) Enoxaparin Sodium (Enoxaparin Sodium 40 Mg/0.4 Ml Syringe) 40 mg SUBCUT Q24H [facility] Last Admin: 09/15/22 08:29 Dose: Not Given Documented By: KRISTINE Non-Admin Reason: Patient Refused Piperacillin Sod/Tazobactam (Sod 4.5 gm/ Sodium Chloride) 100 mls @ 200 mls/hr IV Q6H [facility] Last Infusion: 09/15/22 07:06 Dose: 0 mls/hr Documented By: KRISTINE Melatonin (Melatonin 3 Mg Tablet) 6 mg PO BEDTIME PRN PRN Reason: Insomnia Morphine Sulfate (Morphine Sulfate 4 Mg/Ml Cartridge) 4 mg IVPUSH Q4H PRN; Protocol PRN Reason: Pain, Severe (Pain Scale 7-10) Last Admin: 09/15/22 08:33 Dose: 4 mg Documented By: KRISTINE Ondansetron HCl (Ondansetron Hcl 4 Mg/2 Ml Vial) 4 mg IVPUSH Q8H PRN PRN Reason: Nausea and Vomiting Last Admin: 09/14/22 00:11 Dose: 4 mg Documented By: CHIVO Sodium Chloride (0.9 % Sodium Chloride Flush 3 Ml Syringe) 3 ml IVFLUSH QSHIFT [facility] Last Admin: 09/14/22 23:34 Dose: 3 ml Documented By: GILBERTO Labs 09/14/22 06:19 09/14/22 06:19 Microbiology Microbiology Results: Microbiology 09/13/22 23:05 Blood Culture - Preliminary Blood - Venous No growth after 24 hours. 09/13/22 23:05 Blood Culture - Preliminary Blood - Venous No growth after 24 hours. Procedures Date of Service Date of Service: 09/15/22 Progress Note: A&P Assessment and plan (1) Diverticulitis: Status: Acute Plan We had a bernarda discussion about the patient's nicotine use and how a can contribute not only to diverticulitis attacks, but also different malignancies and will increase his complication risk including infectious and hernia issues should he require surgery. The importance of the follow-up appointment with his PCP and manager supply chain planning to have a colonoscopy this year to exclude malignancy was reviewed. Would consider checking a repeat CBC today. If the white count is up, patient will need a repeat CT; if it is down, patient is a candidate for outpatient treatment and follow-up with his PCP and Gastroenterology for a colonoscopy. Please call me with questions Time Spent With Patient Time: Total time managing care of this patient today ____ minutes. Quality Stroke Does the patient have a stroke diagnosis?: No VTE Prior VTE?: No VTE Risk Level:: Medical - moderate - high VTE Device Contraindication: Treatment Not Indicated VTE Drug Contraindication: N/A - Med Ordered
[2022-09-15] MEDS: 0.9 % Sodium Chloride Flush 3 ML SYRINGE IVFLUSH (08:38)
[2022-09-15 11:18] VITALS: BP 125/77; PULSE 74; RESP 20; TEMP 36.7; O2SAT 95
[2022-09-15 12:41] LABS: Hematocrit 46.3 % (42.0-52.0); Hemoglobin 15.3 g/dl (14.0-18.0); Mean Corpuscular Hemoglobin 29.2 pg (27.0-33.0); Mean Corpuscular Volume 88.4 fL (80.0-98.0); Mean Platelet Volume 10.1 fL (9.4-12.4); Platelet Count 447 X10*3/uL (160-400); Red Blood Count 5.24 X10*6/uL (4.60-5.80); White Blood Count 12.6 X10*3/uL (4.8-10.8)
--- NOTE | 2022-09-15 13:53 | PM.DS ---
DS: Providers Provider Date of Service: 09/15/22 Date of admission: 09/13/22 23:06 Primary care physician: Unknown Physician Consults: 09/13/22 22:59 Consult to General Surgery Stat Consulting Provider: [facility] Reason for consultation: Abdominal pain, diverticulitis with abscess Has provider been notified: Yes 09/15/22 08:05 Consult to Gastroenterology Routine Consulting Provider: Sherlyn Mitchell Reason for consultation: acute diverticulitis, ? need for colonoscpy Has provider been notified: No DS: Diagnosis Discharge Diagnosis (1) Diverticulitis: Status: Acute DS: Summary Hospital Course Hospital Course: Chief Complaint: Abdominal Pain This is a 51-year-old male with pertinent history of knee osteoarthritis on NSAIDs who presents to the emergency department for evaluation of abdominal discomfort.? Patient states he has been having abdominal pain in the epigastric region that started 4-5 days prior to presentation.? Patient initially had constipation but was able to pass stools after he took [id number] stool softeners.? Patient states the abdominal discomfort is relieved when he passes stools.? No similar complaints in the past.? The abdominal pain is nonradiating, intermittent and without any relieving factors.? No relation of the pain to p.o. intake.? Patient denies nausea and vomiting.? Did have episodes of chills.? No fever.? Patient denies chest discomfort, palpitations, shortness of breath, changes in urinary habits.? Patient has never had a screening colonoscopy or intra-abdominal surgery in the past. In the emergency department, imaging with acute diverticulitis with questionable small developing abscess.? General surgery was consulted who recommended admission to Medicine Hospital course: Patient presented with abdominal pain and noted to have acute diverticulitis on CT with possible non-drainable abscess. WBC was 15. He has been treated with IV Zosyn, seen by a surgeon with recommendation for a colonoscopy in the near future and that at this point no indication for surgery. Further advise to stop smoking, stop drinking. He is doing much better with prsently no pain, WBC is down to 12. He is tolerating regular diet. Of miriam he was advised to wait and to be evluated by GI and to have colonoscopy arranged but left againt that advise stating that he will have colonoscopy through PCP's office. Time Spent with Patient Time attestation: Total time managing care of this patient today ____ minutes. Discharge coordination time: Greater than 30 minutes Quality: Safe Use of Opioids Does Pt have an Active Cancer Diagnosis on the Problem List?: No Quality: Stroke Does the patient have a stroke diagnosis?: No Physical Exam Vital Signs: Vital Signs: Last Vital Signs Temp 98.0 F 09/15/22 11:18 Pulse 74 09/15/22 11:18 Resp 20 09/15/22 11:18 BP 125/77 09/15/22 11:18 Pulse Ox 95 09/15/22 11:18 O2 Del Method Room Air 09/15/22 11:18 BMI result Body Mass Index 27.4 DS: Data Data Completed and Pending Labs on day of discharge: Laboratory Results - last 24 hr 09/15/22 12:05 WBC 12.6 H RBC 5.24 Hgb 15.3 Hct 46.3 MCV 88.4 MCH 29.2 MCHC 33.0 RDW 14.0 Plt Count 447 H MPV 10.1 Absolute Nucleated RBC 0.000 Nucleated RBC % (auto) 0.0 Preliminary micro results at discharge 09/13/22 23:05 Blood Culture - Preliminary Blood - Venous No growth after 24 hours. 09/13/22 23:05 Blood Culture - Preliminary Blood - Venous No growth after 24 hours. Discharge Plan Discharge Anticipated Discharge Date/Time: 09/15/22 15:54 Patient Disposition: Left Against Medical Advice Discharge Diagnosis: Acute diverticulitis Referrals: Physician,Unknown J [Physician] - 1 Week Discharge Medications: New levofloxacin 500 mg tablet 500 mg PO DAILY 7 Days Qty: 7 0RF metronidazole 500 mg tablet 250 mg PO BID 14 Days Qty: 14 0RF Continued naproxen 500 mg tablet 500 mg PO BID Discharge Orders: Discharge Order (Routine); Ordered 09/15/22 Ordered By: Keith Babcock Diet: Advance to usual diet Activity on Discharge: As tolerated Care Plan Goals: Full recovery from acute Diverticulitis Health Concerns: acute diverticulitis Plan of Treatment: Take Levaquin and Flagyl as recommended and follow up with your Doctor in a week, Ask your doctor to arrange for follow up appointment gi a [facility] operations consultant for a colonoscopy to be done Assessment: as above
--- NOTE | 2022-09-15 16:08 | PC.NURSE ---
Pt. was to be discharged awaiting consult by GI. Pt. agitated that he had to wait to be seen by GI before being able to leave. Said he had already set up outpatient GI consult with his primary care. He said he would give the GI MD till 1530 to see him and if they did not come by then he would leave AMA. GI did not come to see him and Pt. signed AMA at 1545.
== END 2022-09-15 15:45 | disposition left against medical advice (07) | DRG 244 ==
LOC: HO.ED 23:10 → HO.EDOVER 23:26 → HO.IMC 09-14 00:07
PROVIDERS: Admitting Provider Student in an Organized Health Care Education/Training Program; Emergency Provider Emergency Medicine; PCP Internal Medicine; Visit Provider Internal Medicine
DX: K57.20 Diverticulitis of large intestine with perforation and abscess without bleeding (principal); F17.210 Nicotine dependence, cigarettes, uncomplicated; K59.09 Other constipation; Z79.899 Other long term (current) drug therapy; Z71.6 Tobacco abuse counseling
CPT/HCPCS: 36415; 74176; 80048; 80053; 83605; 83690; 85025; 85027; 87040; 99285; J1650; J2270; J2405; J2543